=== PATIENT | female | born 1950 | race Caucasian/White ===

== ENCOUNTER 2019-08-30 15:47 | Inpatient (IN) | payer MEDICARE, OTHER ==
[~2019-08-30] VITALS: Ht 152.4 cm; Wt 56.4 kg
[~2019-08-30 15:47] MED LIST: AMLO10TA80 PO; BACL-141 PO; CITA20TA75 PO; CLOP75TA33 PO; HYDR-4134 PO; METO-539 PO; NITR0.4T49 SL; ZONISAMIDE
[2019-08-30] MEDS ORDERED: METHYLPREDNISOLONE SOD SUCC 125 MG/2 ML VIAL IV STA (16:39)
[2019-08-30] MEDS ORDERED: IPRATROPIUM BROMIDE (0.02%) 0.5MG/2.5ML NEB HHN STA (16:39)
[2019-08-30] MEDS ORDERED: ALBUTEROL (0.083%) 2.5MG/3ML NEB HHN STA (16:39)
[2019-08-30] MEDS ORDERED: LEVOFLOXACIN 500MG PREMIX 100 ML IV ONE (16:45)
[2019-08-30] MEDS ORDERED: SODIUM CHLORIDE 0.9% 1000ML BAG (SEPSIS BOLUS) IV ONE (16:45)
[2019-08-30 17:32] LABS: BASOPHILS % 0.1 % (0.0-2.0); CHLORIDE 104 mEq/L (98-107); EOSINOPHILS % 1.8 % (0.0-5.0); HEMATOCRIT. 28.1 % (36.0-48.0); HEMOGLOBIN. 9.4 g/dL (12.0-16.0); LYMPHOCYTES % 10.7 % (20.0-50.0); MEAN CORPUSCULAR HEMOGLOBIN 32.1 pg (28.0-32.0); MEAN CORPUSCULAR VOLUME 96.1 fL (81.0-99.0); MEAN PLATELET VOLUME 8.5 fl (7.4-10.4); MONOCYTES % 9.5 % (2.0-8.0); NEUTROPHILS % 77.9 % (40.0-76.0); PLATELET 153 x1000/uL (130-400); RED BLOOD CELL COUNT 2.92 mill/uL (4.2-5.4); RED CELL DISTRIBUTION WIDTH 13.3 % (11.6-14.6)
[2019-08-30 17:36] LABS: INR 0.9; PROTHROMBIN TIME 9.4 sec (9.6-11.0)
[2019-08-30] MEDS ORDERED: FUROSEMIDE 20MG/2ML VIAL IVP ONE (18:15)
[2019-08-30 18:19] LABS: CLARITY URINE TURBID (CLEAR); COLOR URINE YELLOW (YELLOW); KETONES URINE NEGATIVE (NEGATIVE); LEUKOCYTE ESTERASE URINE 3+ (NEGATIVE); NITRITE URINE NEGATIVE (NEGATIVE); OCCULT BLOOD URINE NEGATIVE (NEGATIVE); PROTEIN URINE 3+ (NEGATIVE); SPECIFIC GRAVITY URINE 1.017 (1.005-1.030); UROBILINOGEN URINE 0.2 E.U./dL (0.2-1.0)
[2019-08-30] MEDS ORDERED: DOCUSATE SODIUM 100MG CAPSULE PO PRN (19:30)
[2019-08-30] MEDS ORDERED: GUAIFENESIN 200MG/10ML SUGAR FREE UDC PO PRN (19:30)
[2019-08-30] MEDS ORDERED: ACETAMINOPHEN 325MG TABLET PO PRN (19:30)
[2019-08-30] MEDS ORDERED: IPRATROPIUM/ALBUTEROL 0.5-3(2.5)MG/3ML NEB NEB PRN (19:30)
[2019-08-30] MEDS ORDERED: ENOXAPARIN 40MG/0.4ML SYR SUBCUT SCH (19:30)
[2019-08-30] MEDS ORDERED: NITROGLYCERIN 0.4MG TABLET SL SL PRN (19:30)
[2019-08-30] MEDS ORDERED: ONDANSETRON HCL 4MG/2ML INJ IV PRN (19:30)
[2019-08-30] MEDS ORDERED: MAGNESIUM/ALUMINUM HYDROXIDE/SIMETHICONE 30ML UDC PO PRN (19:30)
[2019-08-30] MEDS ORDERED: LORAZEPAM 0.5MG TABLET PO PRN (19:30)
[2019-08-30] MEDS ORDERED: TRAMADOL 50MG TABLET PO PRN (19:30)
[2019-08-30] MEDS ORDERED: DEXTROSE 50% WATER 50ML SYRINGE IV PRN (19:45)
[2019-08-30] MEDS ORDERED: FAMOTIDINE 20MG TABLET PO SCH (21:00)
[2019-08-30 22:43] LABS: VITAMIN B12 SERUM 1286 pg/mL (211-911)
[2019-08-30 23:09] LABS: FOLIC ACID (FOLATE) SERUM > 20.00 ng/mL (>5.38)
[2019-08-31 00:22] LABS: CREATINE KINASE 72 IU/L (26-192)
[2019-08-31 00:23] LABS: CREATINE KINASE MB FRACTION 1.6 ng/mL (0.5-3.6)
[2019-08-31 05:09] LABS: CREATINE KINASE 64 IU/L (26-192)
[2019-08-31 05:10] LABS: CREATINE KINASE MB FRACTION 1.2 ng/mL (0.5-3.6)
[2019-08-31 07:36] LABS: *AMPHETAMINES SCREEN URINE NEGATIVE (NEGATIVE); *BARBITURATES SCREEN URINE NEGATIVE (NEGATIVE); *BENZODIAZEPINES SCREEN URINE NEGATIVE (NEGATIVE)
[2019-08-31 07:37] LABS: *COCAINE SCREEN URINE NEGATIVE (NEGATIVE); CANNABINOID URINE SCREEN NEGATIVE (NEGATIVE); METHADONE URINE SCREEN NEGATIVE (NEGATIVE); OPIATES URINE SCREEN NEGATIVE (NEGATIVE); PHENCYCLIDINE URINE SCREEN NEGATIVE (NEGATIVE)
[2019-08-31] MEDS ORDERED: CEFTRIAXONE 1 G PREMIX 50 ML IV SCH (11:00)
[2019-08-31] MEDS: FUROSEMIDE 40MG/4ML VIAL IVP SCH ×2 (11:11→19:27)
[2019-08-31] MEDS: FAMOTIDINE 20MG TABLET PO SCH (11:11)
[2019-08-31] MEDS: SPIRONOLACTONE 25MG TABLET PO SCH ×2 (11:11→21:31)
[2019-08-31] MEDS: ZINC SULFATE 220 MG ( 50 ) CAPSULE PO SCH (11:11)
[2019-08-31] MEDS: GUAIFENESIN/DM 600MG/30MG ER TAB 12HR PO SCH ×2 (11:11→21:31)
[2019-08-31] MEDS: ASPIRIN 325MG EC TABLET PO SCH (11:11)
[2019-08-31] MEDS: CARVEDILOL 3.125 MG TABLET PO SCH ×2 (11:11→21:32)
[2019-08-31] MEDS: ENOXAPARIN 30MG/0.3ML SYR SUBCUT SCH (11:13)
[2019-08-31] MEDS: CLOPIDOGREL 75MG TABLET PO SCH (11:13)
[2019-08-31] MEDS: ASCORBIC ACID 500 MG TABLET PO SCH ×2 (11:13→21:32)
[2019-08-31] MEDS: INSULIN LISPRO 100 UNITS/ML SUBCUT SCH ×2 (13:20→21:33)
[2019-08-31] MEDS: BLOOD SUGAR DIAGNOSTIC STRIP TEST SCH ×3 (13:36→21:32)
[2019-08-31] MEDS: METHYLPREDNISOLONE SOD SUCC 125 MG/2 ML VIAL IV SCH ×2 (15:30→21:31)
[2019-08-31 20:00] VITALS: BP_SYST 123; BP_SYST 135; BP_DIAS 59; BP_DIAS 65
[2019-08-31] MEDS ORDERED: LEVOFLOXACIN 500MG PREMIX 100 ML IV NR (20:00)
[2019-08-31] MEDS ORDERED: FOLI-43 PO (20:03)
[2019-08-31] MEDS ORDERED: FAMO-135 PO (20:03)
[2019-08-31] MEDS ORDERED: ZOLPIDEM TARTRATE 5MG TABLET PO PRN (21:00)
[2019-09-01 00:42] VITALS: BP 137/68
[2019-09-01 04:00] VITALS: BP 117/93
[2019-09-01] MEDS: METHYLPREDNISOLONE SOD SUCC 125 MG/2 ML VIAL IV SCH ×2 (05:00→14:45)
[2019-09-01] MEDS: FUROSEMIDE 40MG/4ML VIAL IVP SCH ×2 (05:00→18:13)
[2019-09-01] MEDS: BLOOD SUGAR DIAGNOSTIC STRIP TEST SCH ×4 (06:56→21:00)
[2019-09-01] MEDS: INSULIN LISPRO 100 UNITS/ML SUBCUT SCH ×4 (07:50→22:10)
[2019-09-01 08:00] VITALS: BP 172/76
[2019-09-01] MEDS: ASCORBIC ACID 500 MG TABLET PO SCH ×2 (08:47→22:08)
[2019-09-01] MEDS: SPIRONOLACTONE 25MG TABLET PO SCH ×2 (08:47→22:08)
[2019-09-01] MEDS: GUAIFENESIN/DM 600MG/30MG ER TAB 12HR PO SCH ×2 (08:47→22:08)
[2019-09-01] MEDS: ASPIRIN 325MG EC TABLET PO SCH (08:47)
[2019-09-01] MEDS: CLOPIDOGREL 75MG TABLET PO SCH (08:47)
[2019-09-01] MEDS: ENOXAPARIN 30MG/0.3ML SYR SUBCUT SCH ×2 (08:48→09:09)
[2019-09-01] MEDS: FAMOTIDINE 20MG TABLET PO SCH (08:49)
[2019-09-01] MEDS: CARVEDILOL 3.125 MG TABLET PO SCH ×2 (08:49→22:08)
[2019-09-01] MEDS: ZINC SULFATE 220 MG ( 50 ) CAPSULE PO SCH (08:53)
[2019-09-01] MEDS: IPRATROPIUM/ALBUTEROL 0.5-3(2.5)MG/3ML NEB HHN SCH ×3 (10:25→19:56)
[2019-09-01 12:00] VITALS: BP 133/65
[2019-09-01] MEDS ORDERED: INFLUENZA VIRUS VACCINE(AFLURIA) 0.5ML SYR IM ONE (12:00)
[2019-09-01 16:00] VITALS: BP 160/51
[2019-09-01] MEDS: CEFTRIAXONE 1 G PREMIX 50 ML IV SCH (17:02)
[2019-09-01 20:06] VITALS: BP 155/63
[2019-09-01] MEDS: LEVOFLOXACIN 250MG PREMIX 50 ML IV SCH (22:08)
[2019-09-01] MEDS: METHYLPREDNISOLONE SOD SUCC 40 MG/ML VIAL IV SCH (22:09)
[2019-09-02] VITALS: BP 176/85
[2019-09-02] MEDS: ACETYLCYSTEINE 100MG/ML 10% VIAL 4ML INH SCH ×4 (01:22→16:42)
[2019-09-02] MEDS: IPRATROPIUM/ALBUTEROL 0.5-3(2.5)MG/3ML NEB HHN SCH ×7 (01:22→23:55)
[2019-09-02] MEDS: CLONIDINE 0.1MG TABLET PO PRN (01:32)
[2019-09-02 04:00] VITALS: BP 165/70
[2019-09-02] MEDS: FUROSEMIDE 40MG/4ML VIAL IVP SCH ×2 (05:02→18:57)
[2019-09-02] MEDS: METHYLPREDNISOLONE SOD SUCC 40 MG/ML VIAL IV SCH ×3 (05:02→21:23)
[2019-09-02] MEDS: BLOOD SUGAR DIAGNOSTIC STRIP TEST SCH ×4 (06:31→21:23)
[2019-09-02 08:00] VITALS: BP 206/68
[2019-09-02] MEDS: SPIRONOLACTONE 25MG TABLET PO SCH ×2 (08:46→21:23)
[2019-09-02] MEDS: ZINC SULFATE 220 MG ( 50 ) CAPSULE PO SCH (08:46)
[2019-09-02] MEDS: GUAIFENESIN/DM 600MG/30MG ER TAB 12HR PO SCH ×2 (08:46→21:23)
[2019-09-02] MEDS: ASCORBIC ACID 500 MG TABLET PO SCH ×2 (08:46→21:23)
[2019-09-02] MEDS: FAMOTIDINE 20MG TABLET PO SCH (08:46)
[2019-09-02] MEDS: CLOPIDOGREL 75MG TABLET PO SCH (08:46)
[2019-09-02] MEDS: ASPIRIN 325MG EC TABLET PO SCH (08:46)
[2019-09-02] MEDS: ENOXAPARIN 30MG/0.3ML SYR SUBCUT SCH (08:46)
[2019-09-02] MEDS: CARVEDILOL 3.125 MG TABLET PO SCH ×2 (08:46→21:23)
[2019-09-02] MEDS: INSULIN LISPRO 100 UNITS/ML SUBCUT SCH ×4 (08:46→21:33)
[2019-09-02 12:00] VITALS: BP 142/74
[2019-09-02] MEDS: LOSARTAN POTASSIUM 100 MG TABLET PO SCH (12:22)
[2019-09-02 16:00] VITALS: BP 112/58
[2019-09-02] MEDS: CEFTRIAXONE 1 G PREMIX 50 ML IV SCH (16:27)
[2019-09-02 20:27] VITALS: BP 111/56
[2019-09-02] MEDS: LEVOFLOXACIN 250MG PREMIX 50 ML IV SCH (21:23)
[2019-09-03 00:51] VITALS: BP 160/75
[2019-09-03 04:00] VITALS: BP 128/69
[2019-09-03] MEDS: IPRATROPIUM/ALBUTEROL 0.5-3(2.5)MG/3ML NEB HHN SCH ×5 (04:52→21:10)
[2019-09-03] MEDS: FUROSEMIDE 40MG/4ML VIAL IVP SCH (05:46)
[2019-09-03] MEDS: METHYLPREDNISOLONE SOD SUCC 40 MG/ML VIAL IV SCH ×3 (05:47→21:39)
[2019-09-03] MEDS: BLOOD SUGAR DIAGNOSTIC STRIP TEST SCH ×4 (06:11→21:41)
[2019-09-03] MEDS: ACETYLCYSTEINE 100MG/ML 10% VIAL 4ML INH SCH ×3 (07:33→21:11)
[2019-09-03 08:30] VITALS: BP 185/95
[2019-09-03] MEDS: SPIRONOLACTONE 25MG TABLET PO SCH ×2 (09:36→21:40)
[2019-09-03] MEDS: CLOPIDOGREL 75MG TABLET PO SCH (09:36)
[2019-09-03] MEDS: LOSARTAN POTASSIUM 100 MG TABLET PO SCH (09:36)
[2019-09-03] MEDS: ASCORBIC ACID 500 MG TABLET PO SCH ×2 (09:36→21:40)
[2019-09-03] MEDS: GUAIFENESIN/DM 600MG/30MG ER TAB 12HR PO SCH ×2 (09:36→21:40)
[2019-09-03] MEDS: ZINC SULFATE 220 MG ( 50 ) CAPSULE PO SCH (09:36)
[2019-09-03] MEDS: CARVEDILOL 3.125 MG TABLET PO SCH ×2 (09:36→21:40)
[2019-09-03] MEDS: FAMOTIDINE 20MG TABLET PO SCH (09:36)
[2019-09-03] MEDS: ASPIRIN 325MG EC TABLET PO SCH (09:36)
[2019-09-03] MEDS: ENOXAPARIN 30MG/0.3ML SYR SUBCUT SCH (09:37)
[2019-09-03] MEDS: INSULIN LISPRO 100 UNITS/ML SUBCUT SCH ×4 (09:37→21:41)
[2019-09-03 12:03] VITALS: BP 181/86
[2019-09-03] MEDS: CLONIDINE 0.1MG TABLET PO PRN ×2 (12:11→16:47)
[2019-09-03] MEDS: CEFTRIAXONE 1 G PREMIX 50 ML IV SCH (14:04)
[2019-09-03 15:55] VITALS: BP 188/98
[2019-09-03] MEDS: AMLODIPINE 10MG TABLET PO SCH (17:29)
[2019-09-03 20:00] VITALS: BP 146/67
[2019-09-03] MEDS: LEVOFLOXACIN 250MG PREMIX 50 ML IV SCH (20:27)
[2019-09-03] MEDS: HYDRALAZINE HCL 50MG TABLET PO SCH (21:40)
[2019-09-03] MEDS: FUROSEMIDE 20MG TABLET PO SCH (21:43)
[2019-09-04] VITALS: BP 134/76
[2019-09-04] MEDS: IPRATROPIUM/ALBUTEROL 0.5-3(2.5)MG/3ML NEB HHN SCH ×4 (00:18→12:00)
[2019-09-04 04:00] VITALS: BP 163/78
[2019-09-04 05:02] LABS: HEMATOCRIT. 29.9 % (36.0-48.0); HEMOGLOBIN. 10.2 g/dL (12.0-16.0); MEAN CORPUSCULAR VOLUME 94.1 fL (81.0-99.0); MEAN PLATELET VOLUME 7.6 fl (7.4-10.4); PLATELET 235 x1000/uL (130-400); RED BLOOD CELL COUNT 3.17 mill/uL (4.2-5.4); RED CELL DISTRIBUTION WIDTH 13.1 % (11.6-14.6)
[2019-09-04 05:18] LABS: CHLORIDE 99 mEq/L (98-107)
[2019-09-04 05:54] LABS: PLATELET ESTIMATE NORMAL
[2019-09-04] MEDS: METHYLPREDNISOLONE SOD SUCC 40 MG/ML VIAL IV SCH (05:54)
[2019-09-04] MEDS: HYDRALAZINE HCL 50MG TABLET PO SCH (05:55)
[2019-09-04] MEDS: BLOOD SUGAR DIAGNOSTIC STRIP TEST SCH ×2 (06:32→13:13)
[2019-09-04 08:03] VITALS: BP 143/71
[2019-09-04] MEDS: ENOXAPARIN 30MG/0.3ML SYR SUBCUT SCH (08:40)
[2019-09-04] MEDS: ZINC SULFATE 220 MG ( 50 ) CAPSULE PO SCH (08:40)
[2019-09-04] MEDS: ASPIRIN 325MG EC TABLET PO SCH (08:40)
[2019-09-04] MEDS: CLOPIDOGREL 75MG TABLET PO SCH (08:40)
[2019-09-04] MEDS: LOSARTAN POTASSIUM 100 MG TABLET PO SCH (08:41)
[2019-09-04] MEDS: GUAIFENESIN/DM 600MG/30MG ER TAB 12HR PO SCH (08:41)
[2019-09-04] MEDS: ASCORBIC ACID 500 MG TABLET PO SCH (08:41)
[2019-09-04] MEDS: FUROSEMIDE 20MG TABLET PO SCH (08:41)
[2019-09-04] MEDS: AMLODIPINE 10MG TABLET PO SCH (08:44)
[2019-09-04] MEDS: CARVEDILOL 3.125 MG TABLET PO SCH (08:45)
[2019-09-04] MEDS: INSULIN LISPRO 100 UNITS/ML SUBCUT SCH ×2 (08:46→12:50)
[2019-09-04] MEDS ORDERED: FLUCONAZOLE 100MG TABLET PO SCH (09:00)
[2019-09-04] MEDS: ACETYLCYSTEINE 100MG/ML 10% VIAL 4ML INH SCH (09:50)
[2019-09-04 11:57] VITALS: BP 111/65
[2019-09-04 14:00] VITALS: BP 142/78
[2019-09-05] MEDS ORDERED: LEVOFLOXACIN 250MG PREMIX 50 ML IV SCH (20:00)
== END 2019-09-04 15:28 | DRG 871 ==
LOC: ER 15:47 → EDBEDREQTM 18:22 → EDBEDREQ 18:22 → EDBEDREQSVC 18:22 → SUPCPDRO 18:56 → ENRESERV 08-31 17:02 → 6WST 08-31 18:04
PROVIDERS: ADMIT Internal Medicine; ATTEND Internal Medicine
DX: A41.9 Sepsis, unspecified organism (principal); J96.00 Acute respiratory failure, unspecified whether with hypoxia or hypercapnia; I50.33 Acute on chronic diastolic (congestive) heart failure; J18.9 Pneumonia, unspecified organism; G92 Toxic encephalopathy; N17.0 Acute kidney failure with tubular necrosis; J44.0 Chronic obstructive pulmonary disease with (acute) lower respiratory infection; J44.1 Chronic obstructive pulmonary disease with (acute) exacerbation; N39.0 Urinary tract infection, site not specified; E44.1 Mild protein-calorie malnutrition; E78.5 Hyperlipidemia, unspecified; D63.8 Anemia in other chronic diseases classified elsewhere; E78.00 Pure hypercholesterolemia, unspecified; I11.0 Hypertensive heart disease with heart failure; E11.9 Type 2 diabetes mellitus without complications; L89.322 Pressure ulcer of left buttock, stage 2; L89.319 Pressure ulcer of right buttock, unspecified stage; Z74.01 Bed confinement status; Z79.02 Long term (current) use of antithrombotics/antiplatelets; Z86.73 Personal history of transient ischemic attack (TIA), and cerebral infarction without residual deficits
CPT/HCPCS: 36415; 71045; 80053; 80061; 80305; 81003; 82550; 82553; 82607; 82746; 82962; 83036; 83540; 83550; 83605; 83735; 83880; 84100; 84134; 84145; 84484; 85025; 90686; 93005; 93306; 93970; 94640; 94644; 96365; 96367; 96375; 97162; 99291; J0696; J1650; J1815; J1940; J1956; J2920; J2930; J7030; J7608; J7611; J7620